=== PATIENT | female | born 1985 | race Caucasian/White ===

== ENCOUNTER 2017-11-18 10:02 | Emergency (ER) | payer SELFPAY ==
--- NOTE | 2017-11-18 10:11 | EDPHY ---
H & P Stated Complaint: generalized facial swelling/pain increasing since yesterday Time Seen by Provider: 11/18/17 10:11 - Personal History LMP (Females 10-55): 22-28 Days Ago - Medical/Surgical History Hx Asthma: No Hx Chronic Respiratory Disease: No Hx Diabetes: No Hx Cardiac Disease: No Hx Renal Disease: No Hx Cirrhosis: No Hx Alcoholism: No Hx HIV/AIDS: No Hx Splenectomy or Spleen Trauma: No Other PMH: PMH: L mastoidectomy 2008 - Social History Smoking Status: Never smoked Constitutional: Initial Vital Signs Temperature (C) 36.7 C 11/18/17 10:08 Heart Rate 83 11/18/17 10:08 Respiratory Rate 18 11/18/17 10:08 Blood Pressure 121/71 H 11/18/17 10:08 O2 Sat (%) 99 11/18/17 10:08 O2 Delivery Mode Room Air Allergies/Adverse Reactions: Penicillins Allergy (Verified 06/13/15 15:06) vancomycin Allergy (Verified 06/13/15 15:06) Home Medications: Medication Instructions Recorded oxyCODONE/APAP 5/325 [Percocet 1 tab PO Q6 #10 tab 06/13/15 5/325] Medical Decision Making - Diagnostics Imaging Results: Imaging Impressions Face CT 11/18/17 10:21 Impression: 1. Prominence and enhancement associated with the parotid glands bilaterally as well as inflammation in the adjacent soft tissues suggestive of parotiditis. Consider possibility of mumps. Reactive level 2 and level 3 lymph nodes are also evident. Findings discussed with Conner Marquis MD at 11:44 hour, 11/18/2017. Imaging: Discussed imaging studies w/ call specialist Radiologist, I viewed and interpreted images myself ED Course/Re-evaluation: CHIEF COMPLAINT: "My face is swelling up a lot" HISTORY OF PRESENT ILLNESS: The patient is a 32 y/o female complaining of facial pain onset yesterday morning and progressive facial swelling onset last night. This morning she woke with dramatically worse swelling in both cheeks. Her pain and swelling is worse on the right side than left. She had a laser facial on Monday and denies any recent dental work or allergy exposures. She denies fever, but has had intermittent chills since onset. She says she "doesn' t feel awesome," but otherwise denies specific symptoms. No weakness, paresthesias, speech difficulty, vision changes, hearing changes. She believes she's had an MMR vaccination. REVIEW OF SYSTEMS: A comprehensive 10 system review of systems is otherwise negative aside from elements mentioned in the history of present illness and medical decision making. PHYSICAL EXAM: HR, BP, O2 Sat, RR. Temp noted General Appearance: Alert, well hydrated, appropriate, and non-toxic appearing. Head: Atraumatic without scalp tenderness or obvious injury Face: Bilateral facial swelling, right worse than left. Eyes: Pupils equal, round, reactive to light and accommodation, EOMI, no trauma , no injection. Ears: Clear bilaterally, no perforation, normal landmarks Nose: Atraumatic, no rhinorrhea, clear. Throat: There is no erythema or exudates, no lesions, normal tonsils, mucus membranes moist. Trismus. Neck: Supple, nontender, no lymphadenopathy. Respiratory: No retractions, no distress, no wheezes, and no accessory muscle use. Lungs are clear to auscultation bilaterally. Cardiovascular: Regular rate and rhythm, no murmurs, rubs, or gallops. Good capillary refill all extremities. Gastrointestinal: Abdomen is soft, nontender, non-distended, no masses, no rebound, no guarding, no peritoneal signs. Musculoskeletal: Normal active ROM of all extremities, atraumatic. Neurological: Alert, appropriate, and interactive. The patient has non-focal cranial nerves, motor, sensory, and cerebellar exam. Skin: No rashes, good turgor, no nodules on palpation. Past medical history: Mastoiditis Past surgical history: Left mastoidectomy Family history: Noncontributory Social history: Lives in [place]. Employed. DIAGNOSTICS/PROCEDURES/CRITICAL CARE TIME: Maxillofacial CT with IV contrast: bilateral parotid swelling without obvious etiology. DIFFERENTIAL DIAGNOSIS: The differential diagnosis for the patient's facial swelling included but was not limited to parotiditis/mumps, abscess, allergic reaction, other infectious process, complication related to prior mastoidectomy. MEDICAL DECISION MAKING: This is a normally healthy 32 y/o female who presents with a 1-day history of facial pain and progressive bilateral facial swelling. Swelling is worse on the right side and associated with trismus. She has no neurologic symptoms and a normal neurologic exam. Concerned for mumps and other causes of parotiditis. Plan for IV, labs including mumps Ab, facial CT, and symptom management. 10mg IV Decadron, 1L IV NS ordered. CT shows bilateral parotid swelling without obvious etiology, supporting possibility of mumps. It will take several days for the mumps antibody test to result. Reassessed patient and discussed results. I've advised to her to practice self-isolation and standard contagious respiratory illness care and follow up with her PCP next week. Return precautions discussed. She is comfortable with this plan. - Data Points Laboratory Results: Laboratory Results 11/18/17 10:21 11/18/17 10:21 11/18/17 11/18/17 11/18/17 10:24 10:21 10:21 WBC RBC Hgb POC Hgb 14.3 gm/dL gm/dL (12.6-16.3) Hct POC Hct 42 % % (38-47) MCV MCH MCHC RDW Plt Count MPV Neut % (Auto) Lymph % (Auto) [place] % (Auto) Eos % (Auto) Baso % (Auto) Nucleat RBC Rel Count Absolute Neuts (auto) Absolute Lymphs (auto) Absolute Monos (auto) Absolute Eos (auto) Absolute Basos (auto) Absolute Nucleated RBC Immature Gran % Immature Gran # POC Sodium 141 mEq/L mEq/L (135-145) Sodium 141 mEq/L mEq/L (135-145) POC Potassium 3.8 mEq/L mEq/L (3.3-5.0) Potassium 4.1 mEq/L mEq/L (3.3-5.0) POC Chloride 107 mEq/L mEq/L (97-110) Chloride 106 mEq/L mEq/L (97-110) Carbon Dioxide 22 mEq/l mEq/l (22-31) Anion Gap 13 mEq/L mEq/L (8-16) POC BUN 9 mg/dL mg/dL (7-23) BUN 11 mg/dL mg/dL (7-23) Creatinine 0.6 mg/dL mg/dL (0.6-1.0) POC Creatinine 0.6 mg/dL mg/dL (0.6-1.0) Estimated GFR > 60 Glucose 93 mg/dL mg/dL (70-100) POC Glucose 95 mg/dL mg/dL (70-100) Calcium 9.5 mg/dL mg/dL (8.5-10.4) Mumps Virus IgG Ab Pending Mumps IgG Ab Index Pending Mumps Virus IgM Ab Pending Mumps IgM Ab Index Pending 11/18/17 10:21 WBC 8.40 10^3/uL 10^3/uL (3.80-9.50) RBC 4.57 10^6/uL 10^6/uL (4.18-5.33) Hgb 14.0 g/dL g/dL (12.6-16.3) POC Hgb Hct 40.9 % % (38.0-47.0) POC Hct MCV 89.5 fL fL (81.5-99.8) MCH 30.6 pg pg (27.9-34.1) MCHC 34.2 g/dL g/dL (32.4-36.7) RDW 12.3 % % (11.5-15.2) Plt Count 213 10^3/uL 10^3/uL (150-400) MPV 9.6 fL fL (8.7-11.7) Neut % (Auto) 70.2 % % (39.3-74.2) Lymph % (Auto) 18.5 % % (15.0-45.0) [place] % (Auto) 8.2 % % (4.5-13.0) Eos % (Auto) 2.6 % % (0.6-7.6) Baso % (Auto) 0.4 % % (0.3-1.7) Nucleat RBC Rel Count 0.0 % % (0.0-0.2) Absolute Neuts (auto) 5.90 10^3/uL 10^3/uL (1.70-6.50) Absolute Lymphs (auto) 1.55 10^3/uL 10^3/uL (1.00-3.00) Absolute Monos (auto) 0.69 10^3/uL 10^3/uL (0.30-0.80) Absolute Eos (auto) 0.22 10^3/uL 10^3/uL (0.03-0.40) Absolute Basos (auto) 0.03 10^3/uL 10^3/uL (0.02-0.10) Absolute Nucleated RBC 0.00 10^3/uL 10^3/uL (0-0.01) Immature Gran % 0.1 % % (0.0-1.1) Immature Gran # 0.01 10^3/uL 10^3/uL (0.00-0.10) POC Sodium Sodium POC Potassium Potassium POC Chloride Chloride Carbon Dioxide Anion Gap POC BUN BUN Creatinine POC Creatinine Estimated GFR Glucose POC Glucose Calcium Mumps Virus IgG Ab Mumps IgG Ab Index Mumps Virus IgM Ab Mumps IgM Ab Index Medications Given: Discontinued Medications Dexamethasone (Decadron Injection) 10 mg IVP EDNOW ONE Stop: 11/18/17 10:26 Last Admin: 11/18/17 10:41 Dose: 10 mg Sodium Chloride (Ns) 1,000 mls @ 0 mls/hr IV EDNOW ONE; Wide Open PRN Reason: Protocol Stop: 11/18/17 10:22 Last Admin: 11/18/17 10:24 Dose: 1,000 mls Point of Care Test Results: Chemistry 11/18/17 10:24 POC Sodium 141 mEq/L mEq/L (135-145) POC Potassium 3.8 mEq/L mEq/L (3.3-5.0) POC Chloride 107 mEq/L mEq/L (97-110) POC BUN 9 mg/dL mg/dL (7-23) POC Creatinine 0.6 mg/dL mg/dL (0.6-1.0) POC Glucose 95 mg/dL mg/dL (70-100) ISTAT H&H 11/18/17 10:24 POC Hgb 14.3 gm/dL gm/dL (12.6-16.3) POC Hct 42 % % (38-47) Departure - Departure Disposition: Home, Routine, Self-Care Clinical Impression: Parotiditis, bilateral, suspected mumps Condition: Good Instructions: Mumps in Adults (ED) Additional Instructions: 1. You may have mumps, which is a contagious respiratory illness transmitted by a virus in droplets (from coughing, sneezing, etc.). We have sent a lab test off to confirm this, but it will take a few days to result. Please isolate yourself, wear a mask, and practice good hand hygiene until symptoms have resolved. 2. Follow up with your primary care provider next week for reevaluation. Please wear a mask while out in public to help prevent spread to others. 3. Tylenol and ibuprofen as directed as needed for fever over the next few days. 4. Return to the ED for difficulty breathing, difficulty swallowing, or any other worsening of condition. Adult Pain & Fever Control: We recommend Acetaminophen (Tylenol) and Ibuprofen (Motrin,Advil) for pain and fever control. When fever is high or pain severe, both drugs can be used at the same time, but at different intervals. Please note the time differences. Your dose is: Acetaminophen 650mg every 4 to 6 hours Ibuprofen 600mg every 6-8 hours with food Note: do not take Acetaminophen with Hydrocodone (Vicodin, Lortab) or Oxycodone (Percocet). These medications also contain Acetaminophen. No more than 3000mg of Acetaminophen should be taken in 24 hours (for an adult). Referrals: Sally March MD [[facility] Primary Care Provider] - As per Instructions Report Scribed for: Conner Marquis Report Scribed by: Ivet Chiu Date of Report: 11/18/17 Time of Report: 10:24
[2017-11-18] MEDS ORDERED: NS 1,000 ML IV ONE (10:21)
[2017-11-18] MEDS ORDERED: DEXAMETHASONE 10 MG/ML VIAL IVP ONE (10:25)
[2017-11-18 10:32] LABS: PLATELET COUNT 213 10^3/uL (150-400)
[2017-11-18] MEDS ORDERED: IOPAMIDOL (ISOVUE-300) 100 ML BTL ONE (10:44)
[2017-11-18 12:08] VITALS: BP 111/82
[2017-11-20 13:45] LABS: MUMPS IGG ANTIBODY Positive; MUMPS IGM ANTIBODY NEGATIVE (Negative)
== END 2017-11-18 12:30 | disposition home or self-care (01) ==
DX: K11.20 Sialoadenitis, unspecified (principal); E86.9 Volume depletion, unspecified
CPT/HCPCS: 82435-PO; 82565-PO; 82947-PO; 84132-PO; 84295-PO; 84520-PO; 85014-PO; 86735-90; 96374; J1100; Q9967